=== PATIENT | male | born 2000 | race Caucasian/White ===

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

== ENCOUNTER 2019-10-12 15:23 | Emergency (ER) | payer MEDICARE, SELFPAY ==
[~2019-10-12] VITALS: Ht 167.6 cm; Wt 81.6 kg
[2019-10-12 15:36] VITALS: BP 118/75
--- NOTE | 2019-10-12 15:44 | NUR ---
19 y/m present to ed for body ache, loss of taste and smell, headache, productive cough. pt reports sibiling covid positive. denies n/v/d or sob. rr even and unlabored. pt a & o x 4. pmh- denies nkda rx-ibuprofen
--- NOTE | 2019-10-12 16:58 | NUR ---
covid swab collected and taken to lab.
[2019-10-12 16:59] VITALS: BP 118/75
--- NOTE | 2019-10-12 16:59 | NUR ---
Patient discharged with v/s stable. Written and verbal after care instructions given and explained. Patient verbalized understanding. Ambulatory with steady gait. All questions addressed prior to discharge. Advised to follow up with PMD.
--- NOTE | 2019-10-13 18:40 | NUR ---
Covid results received from lab. Results POSITIVE. Hard copy requested from lab and placed in infection controls mailbox.
== END 2019-10-12 16:59 | disposition home or self-care (01) ==
LOC: MED 15:23
DX: M79.10 Myalgia, unspecified site (principal); Z20.828 Contact with and (suspected) exposure to other viral communicable diseases; R43.8 Other disturbances of smell and taste; Z79.899 Other long term (current) drug therapy
CPT/HCPCS: 99283; U0003